=== PATIENT | female | born 1960 | race Caucasian/White ===

== ENCOUNTER 2020-10-10 08:25 | Emergency (ER) | payer OTHER ==
[~2020-10-10] VITALS: Ht 149.9 cm; Wt 71.8 kg
[2020-10-10] MEDS ORDERED: IV NORMAL SALINE 1,000ML 1,000 ML IV ONE (09:00)
[2020-10-10 09:35] LABS: CALCIUM 9.3 mg/dL (8.5-10.1); GFR 57.1; POTASSIUM 4.2 mmol/L (3.5-5.1)
--- NOTE | 2020-10-10 10:12 | PHYS DOC ---
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 She has history of this in the past but nothing has ever lasted this long. She reports first feeling "backed up" ~3 weeks ago. She has tried several OTC remedies such as Miralax, mag citrate and even an enema without significant relief. She states she took Miralax this morning with production of hard pellets of stool and mostly liquid feces but did admit mild relief with this. She feels dehydrated. She is concerned she is impacted today. No history of abdominal surgeries, recent fever or on any constipating medications. Review of Systems Review of Systems Fourteen body systems of review of systems have been reviewed. See HPI for pertinent positives and negative responses, other rivera all other systems are negative, non-pertinent or non-contributory Current Medications Current Medications Current Medications Medications (Trade) Dose Ordered Sig/Osbaldo Start Time Stop Time Status Last Admin Dose Admin Sodium Chloride 1,000 ml @ 1,000 mls/hr 1X ONCE 10/10/20 09:00 10/10/20 09:59 DC 10/10/20 09:10 1,000 MLS/HR Allergies Allergies Allergies Coded Allergies Type Severity Reaction Last Updated Verified Penicillins Allergy Unknown 10/10/20 Yes amoxicillin Allergy Unknown 10/10/20 Yes codeine Allergy Unknown 10/10/20 Yes neomycin Allergy Unknown 10/10/20 Yes Physical Exam Physical Exam Constitutional: Well developed, well nourished, no acute distress, non-toxic appearance. HENT: Normocephalic, atraumatic, bilateral external ears normal, oropharynx moist, no oral exudates, nose normal. Eyes: PERRLA, EOMI, conjunctiva normal, no discharge. Neck: Normal range of motion, no tenderness, supple, no stridor. Cardiovascular: Heart rate regular, sinus rhythm, no murmurs rubs or gallops Lungs & Thorax: Bilateral breath sounds clear to auscultation Abdomen: Bowel sounds normal, soft, generalized fullness of abdomen with palpa tion without guarding or rebound, no masses, no pulsatile masses. Nonsurgical abdomen, no peritoneal signs. Rectal exam performed, unremarkable external evaluation, rectal sphincter intact, no palpable masses or stool burden present Skin: Warm, dry, no erythema, no rash. Back: No tenderness, no CVA tenderness. Extremities: No tenderness, no cyanosis, no clubbing, ROM intact, no edema. Neurologic: Alert and oriented X 3, grossly normal motor & sensory function, no focal deficits noted. Psychologic: Affect normal, judgement normal, mood normal. Current Patient Data Vital Signs Vital Signs Date Time Temp Pulse Resp B/P (MAP) Pulse Ox O2 Delivery O2 Flow Rate FiO2 10/10/20 08:34 98.1 93 18 137/90 (106) 96 Room Air Lab Results Laboratory Tests Test 10/10/20 09:05 Sodium Level 138 mmol/L (136-145) Potassium Level 4.2 mmol/L (3.5-5.1) Chloride Level 104 mmol/L (98-107) Carbon Dioxide Level 24 mmol/L (21-32) Anion Gap 10 (6-14) Blood Urea Nitrogen 9 mg/dL (7-20) Creatinine 1.0 mg/dL (0.6-1.0) Estimated GFR (Cockcroft-Gault) 57.1 Glucose Level 114 mg/dL (70-99) H Calcium Level 9.3 mg/dL (8.5-10.1) EKG EKG [] Radiology/Procedures Radiology/Procedures [] Heart Score C/O Chest Pain: No Risk Factors: Risk Factors: DM, Current or recent (<one month) smoker, HTN, HLP, family history of CAD, obesity. Risk Scores: Risk Factors: DM, Current or recent (<one month) smoker, HTN, HLP, family history of CAD, obesity. Course & Med Decision Making Course & Med Decision Making Hemodynamically stable patient with history and physical exam consistent with constipation Limited ED workup performed and non-concerning. IVF rehydration and OMT to abdomen to encourage passage of stool performed with mild relief. I discussed potential need for further evaluation of her AP/constipation but francine clinical presentation, joint decision to defer. She is only taking Miralax daily, I encouraged her to increase this, inc PO fluid intake and exercise among other things to stimulate bowel movements Patient has good access to care, I requested she see her PCP by the end of this week for repeat evaluation. All questions and concerns addressed prior to ER departure Pavan Disclaimer Pavan Disclaimer This electronic medical record was generated, in whole or in part, using a voice recognition dictation system. Departure Departure: Impression: Primary Impression: Constipation Disposition: 01 DC HOME SELF CARE/HOMELESS Condition: STABLE Referrals: VICTOR HUGO MASSEY (PCP) Patient Instructions: Constipation, Adult Additional Instructions: You were seen for constipation. Make sure to drink plenty of fluids and eat lots of fruits and vegetables. Please aim to ingest at least 10 g of fiber daily. You should use miralax to help your bowel movements become more regular. Return to the ED if you develop abdominal pain, fever, black/bloody stools, vomiting, or any other new or concerning symptoms. LESLY UMANA DO Oct 10, 2020 10:12
[2020-10-10 10:56] VITALS: BP 137/83
== END 2020-10-10 11:01 | disposition home or self-care (01) ==
LOC: ER 08:25
DX: K59.00 Constipation, unspecified (principal); Z88.0 Allergy status to penicillin; Z88.1 Allergy status to other antibiotic agents; Z88.5 Allergy status to narcotic agent
CPT/HCPCS: 36415; 80048; 96360; 96361; 99283; J7030

== ENCOUNTER → 2020-10-18 | Outpatient (CLI) | payer OTHER ==
[2020-10-10 10:56] VITALS: BP 137/83
[~2020-10-18] MED LIST: IOHEXOL 240 MG/ML 50ML VIAL. ONE; IOHEXOL 300 MG/ML 75 ML VIAL. IV ONE
--- NOTE | 2020-10-18 17:35 | RAD ---
EXAM: CT Abdomen and Pelvis without IV contrast INDICATION: Reason: DIVERTICULOSIS OF LARGE INTESTINE WITHOUTH HEMORRHAGE / Spl. Instructions: / His tory: TECHNIQUE: Multi-detector row CT images were acquired from the lung bases through the abdomen and pel vis without the use of IV contrast. Sagittal and coronal images were acquired from the transaxial brien a. All CT scans performed at this facility utilize dose optimization techniques as appropriate to the exam, including the following: Automated exposure control and adjustment of the mA and/or KV accordi ng to patient size (this includes techniques or standardized protocols for targeted exams where dose is indication/reason for exam). ORAL CONTRAST: Administered COMPARISON: Abdomen pelvis CT without IV contrast of 01/16/2009 FINDINGS: The absence of IV contrast limits evaluation of soft tissue pathology. LOWER CHEST: Patchy groundglass opacities in the lungs bilaterally are newly apparent along with line ar atelectatic changes in the posterior basal right lower lobe. LIVER: Unremarkable BILIARY SYSTEM: Gallbladder is unremarkable. Bile ducts are not dilated. PANCREAS: Unremarkable SPLEEN: Unremarkable ADRENALS: Unremarkable KIDNEYS & URETERS: Unremarkable BLADDER: Unremarkable REPRODUCTIVE ORGANS: Unremarkable. There is interval decrease in bulk of the cervix. GASTROINTESTINAL: Scattered colonic diverticuli are present. The large bowel is not fully opacified b y enteric contrast. There are no findings of acute diverticulitis. The stomach, small bowel, and colo n are otherwise unremarkable. The appendix is normal. MESENTERY/PERITONEUM/RETROPERITONEUM: Unremarkable VASCULAR: Normal caliber abdominal aorta with scattered arterial calcifications. LYMPH NODES: No adenopathy OSSEOUS & SOFT TISSUES: Unremarkable IMPRESSION: 1. Colonic diverticulosis without findings of acute diverticulitis, bowel obstruction or acute inflam mation. 2. Incidental patchy groundglass opacities in the lungs bilaterally. Correlate for any history of rec ent pulmonary infection. Electronically signed by: Sandra Stevenson MD (10/18/2020 5:32 PM) [id number]
== END ==
LOC: CT 12:50
PROVIDERS: ATTEND Family Medicine
DX: K57.30 Diverticulosis of large intestine without perforation or abscess without bleeding (principal); R68.81 Early satiety; R14.0 Abdominal distension (gaseous); R10.13 Epigastric pain; R19.7 Diarrhea, unspecified; R91.8 Other nonspecific abnormal finding of lung field
CPT/HCPCS: 74176